=== PATIENT | female | born 1960 | race Caucasian/White ===

== ENCOUNTER 2018-10-22 12:28 | Emergency (ER) | payer BC ==
[~2018-10-22] VITALS: Ht 161.3 cm; Wt 65.3 kg
[2018-10-22 13:15] VITALS: BP 122/77
[2018-10-22] MEDS ORDERED: ACET-704 PO (13:15)
[2018-10-22] MEDS ORDERED: CLIN300C8 PO (13:15)
--- NOTE | 2018-10-22 13:15 | PHYS DOC ---
Past History Past Medical History: CAD, [place] Past Surgical History: Hysterectomy, Tonsillectomy, Other Alcohol Use: None Drug Use: None Adult General Chief Complaint Chief Complaint: TOOTH ACHE OR PAIN HPI HPI Patient is a 57-year-old female who presents to the emergency department for evaluation. She had a tooth extracted last week in [facility], where she lives, and states over the past few days, she has felt some purulent drainage coming out of the extraction site. She has had some discomfort in the gumline and the socket, but not unbearable. She has not had any fevers or chills. She is in this area visiting family for the holidays. She does admit some nasal congestion, but has not had any cough or shortness of breath. There are no alleviating or exacerbate factors to her symptoms except a palpation of the right lower premolar extraction site does worsen her pain. She denies any other complaints at this time. Review of Systems Review of Systems Constitutional: Denies fever or chills [] Eyes: Denies change in visual acuity, redness, or eye pain [] HENT: Denies otalgia or sore throat [] Respiratory: Denies cough or shortness of breath [] Cardiovascular: The patient denies any shortness of breath, chest pain, palpitations, or orthopnea [] GI: Denies abdominal pain, nausea, vomiting, bloody stools or diarrhea [] Neurologic: Denies headache, focal weakness or sensory changes [] Allergies Allergies Allergies Coded Allergies Type Severity Reaction Last Updated Verified Penicillins Allergy Intermediate hives 10/22/18 Yes codeine Allergy Intermediate vomiting 10/22/18 Yes erythromycin base Allergy Intermediate vomiting 10/22/18 Yes tramadol Allergy Intermediate hives 10/22/18 Yes vancomycin Allergy Intermediate hives 10/22/18 Yes Physical Exam Physical Exam PHYSICAL EXAM: CONSTITUTIONAL: Well developed, well nourished HEAD: normocephalic, atraumatic EENT: PERRL, EOMI. Conjunctivae normal color, sclerae non-icteric; moist mucous membranes. There is no facial swelling. There is a small amount of purulent material in the extraction site of the right lower premolar, without any significant gingival edema. The site is tender to palpation. NECK: Supple, non-tender; no meningismus. LUNGS: Lungs CTA, breathing even and unlabored. Normal air movement. HEART: Regular rate and rhythm, no murmur CHEST: No deformity; non-tender ABDOMEN: The abdomen is soft, and non-tender, no masses or bruits. EXTREM: Normal ROM; no deformity, no calf tenderness. Normal pulses palpable in all extremities. There is no pedal edema. SKIN: No rash; no diaphoresis NEURO: Alert; normal speech and cognition; CN's grossly intact; strength grossly intact without focal deficit. BACK: No CVA TTP. Current Patient Data Vital Signs Vital Signs Date Time Temp Pulse Resp B/P (MAP) Pulse Ox O2 Delivery O2 Flow Rate FiO2 10/22/18 12:28 98.5 77 16 98 Room Air EKG EKG [] Radiology/Procedures Radiology/Procedures [] Course & Med Decision Making Course & Med Decision Making I discussed importance of close follow-up with the patient's dentist, medications, and return precautions. The patient did request some medication for pain to help her sleep tonight. [][id number] analgesics of not been effective. Dragon Disclaimer Dragon Disclaimer This electronic medical record was generated, in whole or in part, using a voice recognition dictation system. Departure Departure: Impression: Primary Impression: Periapical abscess Disposition: HOME, SELF-CARE Condition: STABLE Referrals: PCP,JAMES (PCP) Patient Instructions: Dental Abscess Additional Instructions: Follow-up with your dentist as soon as possible. Scripts Acetaminophen With Codeine (TYLENOL WITH CODEINE #3 TABLET) 1 Each Tablet 1 TAB PO Q6HRS for Pain, #10 TAB Prov: CRISTINE HUBBARD MD 10/22/18 Clindamycin Hcl (CLINDAMYCIN HCL) 300 Mg Capsule 1 CAP PO TID for -, #30 CAP Prov: CRISTINE HUBBARD MD 10/22/18 CRISTINE HUBBARD MD Oct 22, 2018 13:15
== END 2018-10-22 13:15 | disposition home or self-care (01) ==
LOC: ER 12:28
DX: K04.7 Periapical abscess without sinus (principal); I25.10 Atherosclerotic heart disease of native coronary artery without angina pectoris; I25.2 Old myocardial infarction; Z98.818 Other dental procedure status; Z88.0 Allergy status to penicillin; Z88.5 Allergy status to narcotic agent; Z88.1 Allergy status to other antibiotic agents; Z88.6 Allergy status to analgesic agent
CPT/HCPCS: 99283

== ENCOUNTER 2019-06-12 11:03 | Emergency (ER) | payer BC ==
[~2019-06-12] VITALS: Ht 161.3 cm; Wt 66.3 kg
[~2019-06-12 11:03] MED LIST: ACET-704 PO; CLIN300C8 PO
--- NOTE | 2019-06-12 11:30 | PHYS DOC ---
Past History Past Medical History: CAD, [place], Other Past Surgical History: Hysterectomy, Tonsillectomy, Other Smoking: Non-smoker Alcohol Use: Rarely Drug Use: None Adult General Chief Complaint Chief Complaint: KNEE INJURY HPI HPI Patient is a 58-year-old female presents with right knee pain. was el manuel her stand up from a seated position on a porch step when she felt a tearing sensation within her knee. She has been able to walk with severe pain. She has a history between 6-8 years ago, of previous surgery for meniscus repair and "cleaning out arthritis." This was performed at her home [facility]. She is here in [place] visiting family. No numbness or tingling. Increased pain with movement. Moderate improvement with acetaminophen. She is not specific to take NSAIDs because of previous history of cardiac disease for which she had a stent approximately 16 months ago. She is not currently on any anticoagulant medicine other than an aspirin a day. She denies any fall or any other trauma. No numbness or tingling. Pain is moderate to severe.[] Review of Systems Review of Systems Constitutional: Denies fever or chills [] Eyes: Denies change in visual acuity, redness, or eye pain [] HENT: Denies nasal congestion or sore throat [] Respiratory: Denies cough or shortness of breath [] Cardiovascular: No chest pain or palpitations[] GI: Denies abdominal pain, nausea, vomiting, bloody stools or diarrhea [] : Denies dysuria or hematuria [] Musculoskeletal: See history of present illness[] Integument: Denies rash or skin lesions [] Neurologic: Denies headache, focal weakness or sensory changes [] Endocrine: Denies polyuria or polydipsia [] All other systems were reviewed and found to be within normal limits, except as documented in this note. Allergies Allergies Allergies Coded Allergies Type Severity Reaction Last Updated Verified Penicillins Allergy Intermediate hives 06/12/19 Yes erythromycin base Allergy Intermediate vomiting 06/12/19 Yes tramadol Allergy Intermediate hives 06/12/19 Yes vancomycin Allergy Intermediate hives 06/12/19 Yes Physical Exam Physical Exam Constitutional: Well developed, well nourished, no acute distress, non-toxic appearance. [] HENT: Normocephalic, atraumatic, bilateral external ears normal, oropharynx moist, no oral exudates, nose normal. [] Eyes: PERRLA, EOMI, conjunctiva normal, no discharge. [] Neck: Normal range of motion, no tenderness, supple, no stridor. [] Cardiovascular:Heart rate regular rhythm, no murmur [] Lungs & Thorax: Bilateral breath sounds clear to auscultation [] Abdomen: Bowel sounds normal, soft, no tenderness, no masses, no pulsatile masses. Pelvis is stable in 3 planes[] Skin: Warm, dry, no erythema, no rash. [] Back: No tenderness, no CVA tenderness. [] Extremities: Right knee has edema, no significant effusion. Tenderness and along the medial portion of the knee. No varus or valgus laxity. Negative Riya, negative drawer. No hip or ankle pain. Patient is distally neurovascularly intact. The other 3 extremities show: No tenderness, no cyanosis, no clubbing, ROM intact, no edema. [] Neurologic: Alert and oriented X 3, normal motor function, normal sensory function, no focal deficits noted. [] Psychologic: Affect normal, judgement normal, mood normal. [] Current Patient Data Vital Signs Vital Signs Date Time Temp Pulse Resp B/P (MAP) Pulse Ox O2 Delivery O2 Flow Rate FiO2 06/12/19 11:10 98.1 80 18 99 Room Air EKG EKG [] Radiology/Procedures Radiology/Procedures PROCEDURE: KNEE RIGHT 3V Study: KNEE RIGHT 3V Indication: Right knee pain. Comparison: None. Findings: Mineralization at the medial and lateral femorotibial compartments as well as at the suprapatellar compartment suggestive of chondrocalcinosis. Femorotibial compartment joint space height is mostly maintained. Small joint osteophytes. Severe patellofemoral compartment arthrosis. Osteopenia. Suspected knee joint effusion. Impression: 1. 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 2. Osteopenia. If not recently performed, recommend DEXA scan for further characterization.[] Course & Med Decision Making Course & Med Decision Making Pertinent Labs and Imaging studies reviewed. (See chart for details) ED course: Patient arrived, was placed in bed, and tolerated exam well. She was transported to and from radiology with any complications. Discussed findings and plan with patient who voiced understanding. Knee immobilizer was placed. She was distally neurovascularly intact after knee immobilizer being placed. She was provided crutch instructions. She was discharged in improved condition with all questions answered. Medical decision making: There is no evidence of an acute fracture dislocation. This may be a ligamentous injury. There is no MRI capability at [facility]. She does not need an MRI as an emergent procedure. This can be performed as a follow-up. There is note made of the radiology findings of possible CPPD. Will hold on NSAIDs pending patient obtaining approval from her manager heavy duty. Will treat her pain with short-term, narcotic pain medicine.[] Dragon Disclaimer Dragon Disclaimer This electronic medical record was generated, in whole or in part, using a voice recognition dictation system. Departure Departure: Impression: Primary Impression: Right knee pain Disposition: HOME, SELF-CARE Condition: IMPROVED Referrals: PCP,NO (PCP) Patient Instructions: Crutch Use, Knee Exercises, Generic, SportsMed, Knee Immobilization, Knee Pain Additional Instructions: Follow-up with your regular doctor in 2 days. Talked to your manager heavy duty about possibly starting nonsteroidal anti-inflammatory drugs. Return to the ER if worsening pain, weakness, numbness, or any other concerns. Scripts Hydrocodone Bit/Acetaminophen (NORCO 5-325 TABLET) 1 Each Tablet 1 TAB PO Q4-6HRS for severe pain, #20 TAB Prov: STACY WHITING DO 06/12/19 Problem Qualifiers Primary Impression: Right knee pain Chronicity: acute Qualified Codes: M25.561 - Pain in right knee STACY WHITING DO Jun 12, 2019 11:30
--- NOTE | 2019-06-12 11:47 | RAD ---
Study: KNEE RIGHT 3V Indication: Right knee pain. Comparison: None. Findings: Mineralization at the medial and lateral femorotibial compartments as well as at the suprapatellar compartment suggestive of chondrocalcinosis. Femorotibial compartment joint space height is mostly maintained. Small joint osteophytes. Severe patellofemoral compartment arthrosis. Osteopenia. Suspected knee joint effusion. Impression: 1. 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 2. Osteopenia. If not recently performed, recommend DEXA scan for further characterization. Electronically signed by: HI BHATIA MD (06/12/2019 11:44 AM) [id number]
[2019-06-12] MEDS ORDERED: HYDR-3165 PO (11:57)
[2019-06-12 12:11] VITALS: BP 122/69
== END 2019-06-12 12:12 | disposition home or self-care (01) ==
LOC: ER 11:03
DX: M25.561 Pain in right knee (principal); I25.10 Atherosclerotic heart disease of native coronary artery without angina pectoris; I25.2 Old myocardial infarction; Z88.0 Allergy status to penicillin; Z88.1 Allergy status to other antibiotic agents; Z88.6 Allergy status to analgesic agent
CPT/HCPCS: 29505; 73562; 99284

== ENCOUNTER 2019-08-03 08:23 | Emergency (ER) | payer BC ==
[~2019-08-03] VITALS: Ht 161.3 cm; Wt 66.9 kg
[~2019-08-03 08:23] MED LIST changes: +HYDR-3165 PO
[2019-08-03] MEDS ORDERED: ACET500T33 PO (08:34)
--- NOTE | 2019-08-03 08:53 | PHYS DOC ---
Past History Past Medical History: CAD, [place], Other Additional Past Medical Histor: neuropathy in feet Past Surgical History: Hysterectomy, Oophorectomy, Tonsillectomy, Other Additional Past Surgical Histo: R elbow x3; R rotator cuff; L knee x4; R knee scopes x2; bunion; back Smoking: Cigarettes, Less than 1pk/day Alcohol Use: Rarely Drug Use: None Adult General Chief Complaint Chief Complaint: COUGH HPI HPI Patient is a-year-old female presents with cough, nasal congestion, and fever for the past 3 days. MAXIMUM TEMPERATURE was 101 yesterday. Improves with [id number] antipyretics. Cough is productive of clear to yellow tinged phlegm. No shortness of breath. No chest pain. No new swelling in her legs feet or ankles. Patient normally lives in [place], [place], and is visiting here. She denies any chest pain like her previous heart attack approximately a year ago. She denies any out of the country travel.[] Review of Systems Review of Systems Constitutional: See history of present illness, no shaking chills[] Eyes: Denies change in visual acuity, redness, or eye pain [] HENT: Denies nasal congestion or sore throat [] Respiratory: See history of present illness, no shortness of breath[] Cardiovascular: No chest pain or palpitations[] GI: Denies abdominal pain, nausea, vomiting, bloody stools or diarrhea [] : Denies dysuria or hematuria [] Musculoskeletal: Denies back pain or joint pain [] Integument: Denies rash or skin lesions [] Neurologic: Denies headache, focal weakness or sensory changes [] Endocrine: Denies polyuria or polydipsia [] All other systems were reviewed and found to be within normal limits, except as documented in this note. Allergies Allergies Allergies Coded Allergies Type Severity Reaction Last Updated Verified Penicillins Allergy Intermediate hives 08/03/19 Yes erythromycin base Allergy Intermediate vomiting 08/03/19 Yes tramadol Allergy Intermediate hives 08/03/19 Yes vancomycin Allergy Intermediate hives 08/03/19 Yes Physical Exam Physical Exam Constitutional: Well developed, well nourished, no acute distress, non-toxic appearance. [] HENT: Normocephalic, atraumatic, bilateral external ears normal, oropharynx moist, no oral exudates, nose normal. [] Eyes: PERRLA, EOMI, conjunctiva normal, no discharge. [] Neck: Normal range of motion, no tenderness, supple, no stridor. [] Cardiovascular:Heart rate regular rhythm, no murmur [] Lungs & Thorax: Bilateral breath sounds clear to auscultation [] Abdomen: Bowel sounds normal, soft, no tenderness, no masses, no pulsatile masses. [] Skin: Warm, dry, no erythema, no rash. [] Back: No tenderness, no CVA tenderness. [] Extremities: No tenderness, no cyanosis, no clubbing, ROM intact, no edema. [] Neurologic: Alert and oriented X 3, normal motor function, normal sensory function, no focal deficits noted. [] Psychologic: Affect normal, judgement normal, mood normal. [] Current Patient Data Vital Signs Vital Signs Date Time Temp Pulse Resp B/P (MAP) Pulse Ox O2 Delivery O2 Flow Rate FiO2 08/03/19 08:35 98.4 81 18 99 Room Air EKG EKG [] Radiology/Procedures Radiology/Procedures Chest x-ray shows no infiltrate, no effusion, no pneumothorax[] Course & Med Decision Making Course & Med Decision Making Pertinent Labs and Imaging studies reviewed. (See chart for details) ED course: Patient arrived, was placed in bed, and tolerated exam well. Cough medicine was administered, and she was transported to and from radiology with any complications. Findings and plan were discussed with the patient voiced understanding. She was discharged in improved condition. Medical decision making: There is no evidence of pneumonia, no pneumothorax, no hypoxia, no congestive heart failure. Believe the cough to be due to postnasal drainage triggering the cough response.[] Dragon Disclaimer Dragon Disclaimer This electronic medical record was generated, in whole or in part, using a voice recognition dictation system. Departure Departure: Impression: Primary Impression: Upper respiratory infection Additional Impression: Cough Disposition: 01 HOME, SELF-CARE Condition: IMPROVED Referrals: PCPJAMES (PCP) Patient Instructions: Cough, Adult, Upper Respiratory Infection, Adult Additional Instructions: Drink plenty of fluids. Follow-up with your regular doctor in 2 days. Stop smoking! Return to the ER if worsening difficulty breathing, or any other concerns. Scripts Ibuprofen (IBUPROFEN) 400 Mg Tablet 1 TAB PO TID for pain or fever, #30 TAB Prov: STACY WHITING DO 08/03/19 D-Methorphan Hb/Prometh Hcl (PROMETHAZINE-DM SYRUP) 118 Ml Syrup 5 ML PO PRN Q4HRS for CONGESTION, #120 ML Prov: STACY WHITING DO 08/03/19 Albuterol Sulfate (VENTOLIN HFA INHALER) 18 Gm Hfa.aer.ad 2 PUFF IH PRN Q4HRS PRN for COUGH, #1 INHALER 0 Refills Prov: STACY WHITING DO 08/03/19 Problem Qualifiers Primary Impression: Upper respiratory infection URI type: unspecified URI Qualified Codes: J06.9 - Acute upper respiratory infection, unspecified STACY WHITING DO Aug 03, 2019 08:53
[2019-08-03] MEDS ORDERED: guaiFENesin DM 200MG/20MG 10 ML SYRUP PO ONE (09:00)
--- NOTE | 2019-08-03 09:27 | RAD ---
CHEST PA LATERAL History: Cough and fever Comparison: None. Findings: No consolidation or pleural effusion. Normal heart size. Impression: 1. No acute cardiopulmonary process. Electronically signed by: Florentino Coleman DO (08/03/2019 9:24 AM) [id number]
[2019-08-03] MEDS ORDERED: ALBU2.5V8 IH (09:30)
[2019-08-03] MEDS ORDERED: IBUP400T18 PO (09:30)
[2019-08-03] MEDS ORDERED: PROM118S9 PO (09:30)
[2019-08-03] MEDS ORDERED: GUAI-295 PO (09:37)
[2019-08-03 09:48] VITALS: BP 130/70
== END 2019-08-03 09:49 | disposition home or self-care (01) ==
LOC: ER 08:23
DX: J06.9 Acute upper respiratory infection, unspecified (principal); I25.10 Atherosclerotic heart disease of native coronary artery without angina pectoris; I25.2 Old myocardial infarction; F17.210 Nicotine dependence, cigarettes, uncomplicated; Z88.0 Allergy status to penicillin; Z88.1 Allergy status to other antibiotic agents; Z88.6 Allergy status to analgesic agent
CPT/HCPCS: 71046; 99284

== ENCOUNTER → 2020-11-02 | Outpatient (CLI) | payer BC ==
[~2020-11-02] MED LIST changes: +ACET500T33 PO; +ALBU2.5V8 IH; -CLIN300C8 PO; +CLIN300C9 PO; +GUAI-295 PO; +IBUP400T18 PO; +OXYC1TAB19 PO; +PROM118S10 PO
[2020-11-02 13:50] VITALS: BP 92/60
== END | disposition home or self-care (01) ==
LOC: SURG 13:37
PROVIDERS: ATTEND Anesthesiology
DX: M79.2 Neuralgia and neuritis, unspecified (principal); M25.532 Pain in left wrist; R20.8 Other disturbances of skin sensation; M79.10 Myalgia, unspecified site; F17.210 Nicotine dependence, cigarettes, uncomplicated; I25.10 Atherosclerotic heart disease of native coronary artery without angina pectoris; I25.2 Old myocardial infarction; G20 Parkinson's disease; Z88.8 Allergy status to other drugs, medicaments and biological substances; Z88.0 Allergy status to penicillin; Z79.899 Other long term (current) drug therapy; Z88.1 Allergy status to other antibiotic agents; Z88.5 Allergy status to narcotic agent; Z88.6 Allergy status to analgesic agent; Z98.818 Other dental procedure status
CPT/HCPCS: 99214; G0463

== ENCOUNTER → 2020-12-19 | Outpatient (CLI) | payer BC ==
[2020-11-02 13:50] VITALS: BP 92/60
--- NOTE | 2020-12-23 09:07 | RAD ---
DATE: 12/19/2020 1:37 PM EXAM: MAMMO YULISSA SCREENING BILATERAL HISTORY: Screening COMPARISON: 10/26/2019 Bilateral CC and MLO views of the breasts were performed. Bilateral breast tomosynthesis was performed in CC and MLO projections. This study was interpreted with the benefit of Computerized Aided Detection (CAD). FINDINGS: Breast Density: HETERO The breast parenchyma Is heterogeneously dense, which could reduce sensitivity of mammography. Breast parenchyma level C No suspicious masses, microcalcifications or architectural distortion is present to suggest malignancy in either breast. The visualized axillae are unremarkable. IMPRESSION: No mammographic evidence of malignancy. BI-RADS CATEGORY: 1 NEGATIVE RECOMMENDED FOLLOW-UP: 12M 12 MONTH FOLLOW-UP Annual screening mammography is recommended, unless clinically indicated sooner based on symptoms or change in physical exam. PQRS compliance statement: Patient information was entered into a reminder system with a target due date for the next mammogram. Mammography is a sensitive method for finding small breast cancers, but it does not detect them all and is not a substitute for careful clinical examination. A negative mammogram does not negate a clinically suspicious finding and should not result in delay in biopsying a clinically suspicious abnormality. "Our facility is accredited by the [employer] Mammography Program."
== END ==
LOC: MAMMO 13:27
PROVIDERS: ATTEND Family Medicine
DX: Z12.31 Encounter for screening mammogram for malignant neoplasm of breast (principal); N64.89 Other specified disorders of breast
CPT/HCPCS: 77063; 77067

== ENCOUNTER → 2021-06-29 | Outpatient (CLI) | payer MEDICARE, OTHER ==
[2020-11-02 13:50] VITALS: BP 92/60
[~2021-06-29] MED LIST changes: +CONTRAST GIVEN. MC PRN; +IOHEXOL 240 MG/ML 50ML VIAL. PO ONE; +IOHEXOL 300 MG/ML 75 ML VIAL. IV ONE
--- NOTE | 2021-06-29 10:27 | RAD ---
AP and Lateral Views of the Chest 06/29/2021 9:15 AM Indication: Reason: UNEXPLAINED WEIGHT LOSS FOR 1 YEAR / Spl. Instructions: / History: Comparison: Chest radiograph August 03, 2019 Findings: There is no focal consolidation or infiltrate identified. The cardiomediastinal silhouette is within normal limits. There is no evidence of pneumothorax or pleural effusion. No acute osseous a bnormalities are identified. Impression: No evidence of acute cardiopulmonary process. Electronically signed by: Luis Franco MD (06/29/2021 10:25 AM) [id number]
--- NOTE | 2021-06-29 12:06 | RAD ---
CT of the abdomen and pelvis with contrast 06/29/2021 12:03 PM Indication: Reason: UNEXPLAINED WEIGHT LOSS FOR 1 YEAR / Spl. Instructions: DRINKING [id number] - CON TRAST ORDERED / History: Comparison study: None Technique: Multidetector CT imaging of the abdomen and pelvis was performed following the administrat ion of IV contrast. Findings: The partially visualized lung bases demonstrate no acute abnormality. The liver, gallbladder, spleen, bilateral adrenal glands, bilateral kidneys, and pancreas, are grossl y unremarkable. There is no bowel obstruction. No evidence of acute inflammatory change involving vis ualized bowel is identified. Appendix is visualized and unremarkable in appearance. Hysterectomy note d. No gross bladder abnormality is identified. No free fluid or free air is seen in the abdomen or pe lvis. No acute osseous changes are identified. Postoperative changes following laminectomy and pedic le screw fusion L4-S1 noted. Impression: No evidence of acute intra-abdominal abnormality is identified CT DOSING PQRS STATEMENT: One or more of the following individualized dose reduction techniques were utilized for this examinat ion: 1. Automated exposure control 2. Adjustment of the mA and/or kV according to patient size 3. Use of iterative reconstruction technique Electronically signed by: Luis Franco MD (06/29/2021 12:04 PM) [id number]
== END ==
LOC: CT 09:01
PROVIDERS: ATTEND Internal Medicine Gastroenterology
DX: R63.4 Abnormal weight loss (principal); R11.0 Nausea; Z68.44 Body mass index [BMI] 60.0-69.9, adult; Z98.1 Arthrodesis status; Z90.710 Acquired absence of both cervix and uterus
CPT/HCPCS: 71046; 74177; Q9966; Q9967

== ENCOUNTER → 2021-07-28 | Outpatient (CLI) | payer MEDICARE ==
[2020-11-02 13:50] VITALS: BP 92/60
[~2021-07-28] MED LIST changes: -CONTRAST GIVEN. MC PRN; -IOHEXOL 240 MG/ML 50ML VIAL. PO ONE; -IOHEXOL 300 MG/ML 75 ML VIAL. IV ONE
--- NOTE | 2021-07-28 12:33 | RAD ---
EXAMINATION: US ABDOMEN OR LOWER BACK LIMITED 07/28/2021 8:48 AM INDICATION: Nausea and vomiting, weight loss TECHNIQUE: Ruff scale and color Doppler ultrasound images of the right upper quadrant were obtained. COMPARISON: CT abdomen pelvis 06/29/2021. FINDINGS: Liver: The liver is normal in size measuring 15 cm in length. Normal hepatic echogenicity. No focal liver lesion. Main portal vein is patent with antegrade flow. Gallbladder: The gallbladder is normal in caliber. No cholelithiasis or sludge. The gallbladder wa ll is normal in thickness measuring 2 mm. Bile ducts: The common bile duct is normal measuring 2 mm. No intrahepatic biliary duct dilatation. Right kidney: The right kidney measures 10.3 x 6.1 x 3.9 cm. Normal cortical thickness and echogenic ity. No hydronephrosis. Other: Abdominal aorta and inferior vena cava are normal where visualized. The pancreas is normal wh ere visualized. IMPRESSION: Normal right upper quadrant ultrasound. Electronically signed by: Tamanna Conte MD (07/28/2021 12:31 PM) [id number]
== END ==
LOC: US 08:43
PROVIDERS: ATTEND Internal Medicine Gastroenterology
DX: R11.2 Nausea with vomiting, unspecified (principal); R63.4 Abnormal weight loss; R68.81 Early satiety
CPT/HCPCS: 76705